=== PATIENT | female | born 1960 | race Caucasian/White ===

== ENCOUNTER 2017-05-18 13:33 | Day surgery (SDC) | payer OTHER ==
[~2017-05-18] VITALS: Ht 177.8 cm; Wt 124.7 kg
[~2017-05-18 13:33] MED LIST: ALBU90OI6 INH; ALLERGY10 MG PO; ASPI325 PO; ATOR40TA PO; CARV6.25 PO; CLOP75 PO; CYCL10 PO; Coreg12.5 MG PO; ERGO50000; ESCI10 PO; ESCI20 PO; FARXIGA5 MG PO; GABA300 PO; INSUASPI SC; INSULANPEN SC; LATA.005SO BOTHEYES; LISI5 PO; LORA.5 PO; LORA1 PO; Lisinopril2.5 MG PO; Lopressor 50 mg50 MG GT; Norco 10-325 T1 EACH PO; Omeprazole20 M1; Pravachol80 MG PO; Pravastatin Sod80 MG PO; ROSU10TA PO; RXLORA1 PO; SITA100T2 PO; VITAMIN D22000 UNIT PO
[2017-05-18] MEDS ORDERED: METO50ER PO (13:54)
== END 2017-05-18 14:46 | disposition home or self-care (01) ==
LOC: ORSCSDS 13:33
PROVIDERS: Ophthalmology
PROC: 08RK3JZ Replacement of Left Lens with Synthetic Substitute, Percutaneous Approach (ICD-10-PCS; principal; 2017-05-18 15:00)
DX: H25.12 Age-related nuclear cataract, left eye (principal); E11.9 Type 2 diabetes mellitus without complications; I10 Essential (primary) hypertension; I25.2 Old myocardial infarction; Z79.82 Long term (current) use of aspirin; Z79.4 Long term (current) use of insulin; Z79.899 Other long term (current) drug therapy; Z87.891 Personal history of nicotine dependence
CPT/HCPCS: 82947; J2250; J3010; J7040; V2632

== ENCOUNTER 2017-06-22 11:10 | Day surgery (SDC) | payer OTHER ==
[~2017-06-22] VITALS: Ht 177.8 cm; Wt 125.3 kg
[~2017-06-22 11:10] MED LIST changes: +METO50ER PO
== END 2017-06-22 13:11 | disposition home or self-care (01) ==
LOC: ORSCSDS 11:10
PROVIDERS: Ophthalmology
PROC: 08RJ3JZ Replacement of Right Lens with Synthetic Substitute, Percutaneous Approach (ICD-10-PCS; principal; 2017-06-22 12:30)
DX: H25.11 Age-related nuclear cataract, right eye (principal); E11.9 Type 2 diabetes mellitus without complications; I10 Essential (primary) hypertension; I25.10 Atherosclerotic heart disease of native coronary artery without angina pectoris; I25.2 Old myocardial infarction; E66.9 Obesity, unspecified; Z68.39 Body mass index [BMI] 39.0-39.9, adult; Z87.891 Personal history of nicotine dependence; Z79.82 Long term (current) use of aspirin; Z79.4 Long term (current) use of insulin; Z79.899 Other long term (current) drug therapy
CPT/HCPCS: 82947; J2250; J3010; J7040; V2632

== ENCOUNTER → 2017-07-10 | Outpatient (CLI) | payer OTHER ==
[2017-07-10 19:55] LABS: Creatinine, Urine Random 83.4 mg/dL (27.00-270.00)
[2017-07-10 19:57] LABS: Microalb/Creat Ratio UR, Rand 9.484 mg/g (0.000-30.000); Microalbumin, Random Urine 7.91 mg/L (0.000-20.000)
== END ==
LOC: LAB EV 16:29 → EDSTATUS 06-01 11:05 → LAB FUT 06-01 11:05
PROVIDERS: Nurse Practitioner Family
DX: E11.65 Type 2 diabetes mellitus with hyperglycemia (principal)
CPT/HCPCS: 82043; 82570

== ENCOUNTER → 2018-03-29 | Outpatient (CLI) | payer OTHER ==
[2018-03-29 16:32] LABS: BASOPHILS ABSOLUTE AUTO 0.04 K/mm3 (0.00-0.23); BASOPHILS PERCENT AUTO 0 % (0-2); EOSINOPHILS ABSOLUTE AUTO 0.27 K/mm3 (0.00-0.68); EOSINOPHILS PERCENT AUTO 3 % (0-6); Hematocrit 44.3 % (33.0-51.0); Hemoglobin 14.4 g/dL (11.5-16.0); IMMATURE GRAN ABSOLUTE AUTO 0.05 K/mm3 (0.00-0.10); IMMATURE GRAN PERCENT AUTO 1 % (0-1); LYMPHOCYTES ABSOLUTE AUTO 2.32 K/mm3 (0.84-5.20); LYMPHOCYTES PERCENT AUTO 21 % (21-46); MONOCYTES ABSOLUTE AUTO 0.66 K/mm3 (0.16-1.47); MONOCYTES PERCENT AUTO 6 % (4-13); Mean Corpuscular HGB 30.1 pg (26.0-34.0); Mean Corpuscular HGB Conc 32.5 g/dL (31.5-36.5); Mean Corpuscular Volume 93 fL (80-100); Mean Platelet Volume 10.5 fL (9.1-12.4); NEUTROPHILS ABSOLUTE AUTO 7.61 K/mm3 (1.96-9.15); NEUTROPHILS PERCENT AUTO 69 % (41-73); Platelet Count 228 K/mm3 (150-400); RDW Coefficient Variation 13.9 % (11.7-14.2); RDW Standard Deviation 47.3 fL (35.1-46.3); Red Blood Cell Count 4.79 M/mm3 (3.80-5.20); White Blood Cell Count 10.95 K/mm3 (4.00-11.30)
[2018-03-29 16:51] LABS: Anion Gap 10 mmol/L (6-16); Blood Urea Nitrogen 10 mg/dL (8-24); Bun/Creatinine Ratio 14.7 (12.0-20.0); CO2, Blood 27 mmol/L (21-32); Calcium, Blood 8.7 mg/dL (8.5-10.1); Chloride, Blood 103 mmol/L (98-108); Creatinine, Blood 0.68 mg/dL (0.40-1.00); Glomerular Filtration Rate >60 (60-); Glucose, Blood 137 mg/dL (70-99); Potassium, Blood 3.8 mmol/L (3.5-5.5); Sodium, Blood 140 mmol/L (136-145)
[2018-03-29 17:01] LABS: Troponin I <0.015 ng/mL (0.000-0.040)
== END | disposition home or self-care (01) ==
LOC: LAB SHORT 16:27 → LAB EV 16:27
PROVIDERS: Physician Assistant Surgical
DX: R06.02 Shortness of breath (principal)
CPT/HCPCS: 80048; 84484; 85025

== ENCOUNTER → 2018-05-04 | Outpatient (CLI) | payer OTHER | END | disposition home or self-care (01) | LOC: LAB 11:07 → LAB SHORT 11:07 | DX: N89.8 Other specified noninflammatory disorders of vagina (principal) | CPT/HCPCS: 87070; 87147; 87205 ==

== ENCOUNTER → 2018-07-20 | Outpatient (CLI) | payer OTHER | END | disposition home or self-care (01) | LOC: LAB SHORT 12:47 → LAB 12:47 | DX: L22 Diaper dermatitis (principal); B35.6 Tinea cruris; B37.3 Candidiasis of vulva and vagina; N95.2 Postmenopausal atrophic vaginitis | CPT/HCPCS: 87070; 87147; 87205 ==

== ENCOUNTER → 2018-09-14 | Outpatient (CLI) | payer OTHER ==
[~2018-09-14] MED LIST changes: +ESTRADIOL42.5 GM VG; +JARDIANCE10 MG PO; +LOSARTAN POTASS25 M2 PO; +METFORMIN HCL500 MG PO; +MONTELUKAST SOD10 MG PO; +OMEP20ER PO; +Oxybutynin Chlo10 MG PO; +TIMO10T
== END ==
LOC: LAB SHORT 11:28 → LAB EV 11:28
DX: N30.00 Acute cystitis without hematuria (principal)
CPT/HCPCS: 87077; 87086; 87186

== ENCOUNTER → 2018-09-27 | Outpatient (CLI) | payer OTHER | END | disposition home or self-care (01) | LOC: LAB EV 13:23 → LAB SHORT 13:23 | DX: R30.0 Dysuria (principal) | CPT/HCPCS: 87086 ==

== ENCOUNTER → 2018-10-12 | Outpatient (CLI) | payer OTHER ==
[2018-10-12 13:18] LABS: BASOPHILS ABSOLUTE AUTO 0.04 K/mm3 (0.00-0.23); BASOPHILS PERCENT AUTO 1 % (0-2); EOSINOPHILS ABSOLUTE AUTO 0.18 K/mm3 (0.00-0.68); EOSINOPHILS PERCENT AUTO 2 % (0-6); Hematocrit 46.4 % (33.0-51.0); Hemoglobin 15.3 g/dL (11.5-16.0); IMMATURE GRAN ABSOLUTE AUTO 0.04 K/mm3 (0.00-0.10); IMMATURE GRAN PERCENT AUTO 1 % (0-1); LYMPHOCYTES ABSOLUTE AUTO 2.02 K/mm3 (0.84-5.20); LYMPHOCYTES PERCENT AUTO 23 % (21-46); MONOCYTES ABSOLUTE AUTO 0.45 K/mm3 (0.16-1.47); MONOCYTES PERCENT AUTO 5 % (4-13); Mean Corpuscular HGB 30.2 pg (26.0-34.0); Mean Corpuscular Volume 92 fL (80-100); Mean Platelet Volume 10.3 fL (9.1-12.4); NEUTROPHILS ABSOLUTE AUTO 5.99 K/mm3 (1.96-9.15); NEUTROPHILS PERCENT AUTO 69 % (41-73); Platelet Count 201 K/mm3 (150-400); RDW Coefficient Variation 14.5 % (11.7-14.2); RDW Standard Deviation 48.4 fL (35.1-46.3); Red Blood Cell Count 5.06 M/mm3 (3.80-5.20); White Blood Cell Count 8.72 K/mm3 (4.00-11.30)
[2018-10-12 13:30] LABS: Alanine Aminotransfer (ALT/SGP 17 U/L (12-78); Albumin, Blood 3.5 g/dL (3.4-5.0); Albumin/Globulin Ratio 0.9 (0.8-1.8); Alk Phos 138 U/L (40-126); Anion Gap 11 mmol/L (6-16); Aspartate Aminotrans (AST/SGOT 22 U/L (12-37); Bilirubin, Total 0.5 mg/dL (0.1-1.0); Blood Urea Nitrogen 10 mg/dL (8-24); Bun/Creatinine Ratio 13.2 (12.0-20.0); CO2, Blood 24 mmol/L (21-32); Calcium, Blood 9.3 mg/dL (8.5-10.1); Chloride, Blood 104 mmol/L (98-108); Creatinine, Blood 0.76 mg/dL (0.40-1.00); Globulin, Blood 3.7 g/dL (2.2-4.0); Glomerular Filtration Rate >60 (60-); Glucose, Blood 148 mg/dL (70-99); Potassium, Blood 4.2 mmol/L (3.5-5.5); Sodium, Blood 139 mmol/L (136-145); Total Protein, Blood 7.2 g/dL (6.4-8.2)
[2018-10-12 13:45] LABS: Troponin I <0.017 ng/mL (0.000-0.040)
== END | disposition home or self-care (01) ==
LOC: LAB SHORT 13:13 → LAB EV 13:13
PROVIDERS: Physician Assistant
DX: R07.9 Chest pain, unspecified (principal)
CPT/HCPCS: 80053; 84484; 85025

== ENCOUNTER 2018-12-28 20:47 | Emergency (ER) | payer OTHER ==
[~2018-12-28] VITALS: Ht 177.8 cm; Wt 122.2 kg
[~2018-12-28 20:47] MED LIST changes: -ESTRADIOL42.5 GM VG; -JARDIANCE10 MG PO; -LOSARTAN POTASS25 M2 PO; -METFORMIN HCL500 MG PO; -MONTELUKAST SOD10 MG PO; -OMEP20ER PO; -Oxybutynin Chlo10 MG PO; -TIMO10T
[2018-12-28 21:32] LABS: BASOPHILS ABSOLUTE AUTO 0.06 K/mm3 (0.00-0.23); BASOPHILS PERCENT AUTO 1 % (0-2); EOSINOPHILS PERCENT AUTO 4 % (0-6); Hematocrit 46.8 % (33.0-51.0); Hemoglobin 15.2 g/dL (11.5-16.0); IMMATURE GRAN ABSOLUTE AUTO 0.08 K/mm3 (0.00-0.10); IMMATURE GRAN PERCENT AUTO 1 % (0-1); LYMPHOCYTES ABSOLUTE AUTO 3.58 K/mm3 (0.84-5.20); LYMPHOCYTES PERCENT AUTO 32 % (21-46); MONOCYTES ABSOLUTE AUTO 0.78 K/mm3 (0.16-1.47); MONOCYTES PERCENT AUTO 7 % (4-13); Mean Corpuscular HGB Conc 32.5 g/dL (31.5-36.5); Mean Corpuscular Volume 96 fL (80-100); Mean Platelet Volume 10.2 fL (9.1-12.4); NEUTROPHILS ABSOLUTE AUTO 6.32 K/mm3 (1.96-9.15); NEUTROPHILS PERCENT AUTO 56 % (41-73); Platelet Count 261 K/mm3 (150-400); RDW Standard Deviation 48.8 fL (35.1-46.3); White Blood Cell Count 11.22 K/mm3 (4.00-11.30)
[2018-12-28 21:52] LABS: Alanine Aminotransfer (ALT/SGP 19 U/L (12-78); Albumin, Blood 3.5 g/dL (3.4-5.0); Alk Phos 128 U/L (50-136); Anion Gap 9 mmol/L (6-16); Aspartate Aminotrans (AST/SGOT 24 U/L (12-37); Bilirubin, Total 0.3 mg/dL (0.1-1.0); Blood Urea Nitrogen 11 mg/dL (8-24); Bun/Creatinine Ratio 15.5 (12.0-20.0); CO2, Blood 25 mmol/L (21-32); Chloride, Blood 108 mmol/L (98-108); Creatinine, Blood 0.71 mg/dL (0.40-1.00); Globulin, Blood 3.6 g/dL (2.2-4.0); Glomerular Filtration Rate >60 (60-); Glucose, Blood 125 mg/dL (70-99); Potassium, Blood 3.5 mmol/L (3.5-5.5); Sodium, Blood 142 mmol/L (136-145); Total Protein, Blood 7.1 g/dL (6.4-8.2); Troponin I <0.015 ng/mL (0.000-0.040)
[2018-12-29] MEDS ORDERED: METFORMIN HCL500 MG PO (00:16)
[2018-12-29] MEDS ORDERED: LOSARTAN POTASS25 M2 PO (00:17)
[2018-12-29] MEDS ORDERED: MONTELUKAST SOD10 MG PO (00:18)
[2018-12-29] MEDS ORDERED: JARDIANCE10 MG PO (00:18)
[2018-12-29] MEDS ORDERED: OMEP20ER PO (00:19)
[2018-12-29] MEDS ORDERED: ESCI20 PO (00:19)
[2018-12-29] MEDS ORDERED: Oxybutynin Chlo10 MG PO (00:20)
[2018-12-29] MEDS ORDERED: ESTRADIOL42.5 GM VG (00:21)
[2018-12-29] MEDS ORDERED: TIMO10T (00:21)
== END 2018-12-29 02:30 | disposition home or self-care (01) ==
LOC: ER 20:47
PROVIDERS: Physician Assistant
DX: R00.2 Palpitations (principal); E11.9 Type 2 diabetes mellitus without complications; J44.9 Chronic obstructive pulmonary disease, unspecified; I25.2 Old myocardial infarction; Z85.828 Personal history of other malignant neoplasm of skin; Z87.891 Personal history of nicotine dependence; Z91.048 Other nonmedicinal substance allergy status; Z88.8 Allergy status to other drugs, medicaments and biological substances; Z88.5 Allergy status to narcotic agent; Z79.899 Other long term (current) drug therapy; Z79.82 Long term (current) use of aspirin; Z79.4 Long term (current) use of insulin
CPT/HCPCS: 36415; 71046; 80053; 84484; 85025; 93005; 93010; 99285-25

== ENCOUNTER → 2019-01-16 | Outpatient (CLI) | payer OTHER ==
[~2019-01-16] MED LIST changes: +ESTRADIOL42.5 GM VG; +JARDIANCE10 MG PO; +LOSARTAN POTASS25 M2 PO; +METFORMIN HCL500 MG PO; +MONTELUKAST SOD10 MG PO; +OMEP20ER PO; +Oxybutynin Chlo10 MG PO; +TIMO10T
[2019-01-21 14:07] LABS: HPV 16 Negative (Negative); HPV 18 Negative (Negative); HPV OTHER HR TYPES Negative (Negative)
== END | disposition home or self-care (01) ==
LOC: LAB SHORT 16:22 → OLS 16:22
PROVIDERS: Obstetrics & Gynecology Gynecology
DX: Z12.72 Encounter for screening for malignant neoplasm of vagina (principal)
CPT/HCPCS: 87624; G0123

== ENCOUNTER → 2020-03-11 | Outpatient (CLI) | payer OTHER ==
[2020-03-13 11:10] LABS: ADENOVIRUS F 40/41 Not Detected (Not Detected); ASTROVIRUS Not Detected (Not Detected); C DIFFICILE TOXIN A/B Not Detected (Not Detected); CRYPTOSPORIDIUM Not Detected (Not Detected); CYCLOSPORA CAYETANENSIS Not Detected (Not Detected); ENTAMOEBA HISTOLYTICA Not Detected (Not Detected); ENTEROAGGREGATIVE E COLI Not Detected (Not Detected); ENTEROPATHOGENIC E COLI Detected (Not Detected); ENTEROTOXIGENIC E COLI Not Detected (Not Detected); GIARDIA LAMBLIA Not Detected (Not Detected); NOROVIRUS GI/GII Not Detected (Not Detected); PLESIOMONAS SHIGELLOIDES Not Detected (Not Detected); ROTAVIRUS A Not Detected (Not Detected); SALMONELLA Not Detected (Not Detected); SAPOVIRUS Not Detected (Not Detected); SHIGA-TOXIN-PRODUCING E COLI Not Detected (Not Detected); SHIGELLA/ENTEROINVASIVE E COLI Not Detected (Not Detected); VIBRIO Not Detected (Not Detected); VIBRIO CHOLERAE Not Detected (Not Detected); YERSINIA ENTEROCOLITICA Not Detected (Not Detected)
== END ==
LOC: LAB SHORT 18:03
PROVIDERS: Physician Assistant
DX: R19.7 Diarrhea, unspecified (principal)
CPT/HCPCS: 0097U

== ENCOUNTER → 2020-12-21 | Outpatient (CLI) | payer OTHER ==
[2020-12-22 12:01] LABS: Candida species (DNA Probe) Positive (NEGATIVE); G. vaginalis (DNA Probe) Positive (NEGATIVE); T. vaginalis (DNA Probe) Negative (NEGATIVE)
== END ==
LOC: LAB SHORT 12:38
PROVIDERS: Physician Assistant
DX: N89.8 Other specified noninflammatory disorders of vagina (principal)
CPT/HCPCS: 87480; 87510; 87660

== ENCOUNTER → 2021-01-08 | Outpatient (CLI) | payer OTHER ==
[2021-01-08 16:03] LABS: Source, Urine Clean Catch
[2021-01-08 16:35] LABS: Appearance, Urine Hazy (Clear); Bilirubin, Urine Neg (Neg); Blood, Urine Neg (Neg); Color, Urine Yellow (P-Yellow); Glucose Qualitative, Urine 3+ (Normal); Ketones, Urine Neg (Neg); Leukocyte Esterase, Urine 1+ (Neg); Nitrite, Urine Neg (Neg); Protein, Urine Neg (Neg); Specific Gravity, Urine 1.005 (1.003-1.022); Urobilinogen, Urine NORM (Normal)
[2021-01-08 16:38] LABS: Bacteria Not Seen /hpf; Red Blood Cells, Urine 0-2 /hpf (0-2); Squamous Epithelial Cells Few /hpf (Few)
== END ==
LOC: LAB 15:58 → LAB SHORT 15:58
PROVIDERS: Physician Assistant
DX: R35.0 Frequency of micturition (principal)
CPT/HCPCS: 81001; 87077; 87086; 87186

== ENCOUNTER → 2021-05-05 | Outpatient (CLI) | payer OTHER ==
[2021-05-05 11:59] LABS: Source, Urine Voided
[2021-05-05 12:56] LABS: Appearance, Urine Clear (Clear); Bilirubin, Urine Neg (Neg); Blood, Urine Neg (Neg); Color, Urine Yellow (P-Yellow); Glucose Qualitative, Urine 4+ (Neg); Ketones, Urine Neg (Neg); Leukocyte Esterase, Urine Neg (Neg); Nitrite, Urine Neg (Neg); Protein, Urine Neg (Neg); Specific Gravity, Urine 1.015 (1.003-1.022); Urobilinogen, Urine NORM (Normal)
== END ==
LOC: LAB SHORT 11:33
PROVIDERS: Internal Medicine Endocrinology, Diabetes & Metabolism
DX: R30.9 Painful micturition, unspecified (principal)
CPT/HCPCS: 81003

== ENCOUNTER → 2021-12-02 | Outpatient (CLI) | payer OTHER | END | disposition home or self-care (01) | LOC: LAB 13:42 → LAB SHORT 13:42 | DX: N39.0 Urinary tract infection, site not specified (principal) | CPT/HCPCS: 87077; 87086; 87186 ==

== ENCOUNTER → 2022-02-25 | Outpatient (CLI) | payer OTHER ==
[2022-02-25 16:03] LABS: Albumin, Blood 3.5 g/dL (3.4-5.0); Bilirubin, Total 0.4 mg/dL (0.1-1.0); Bun/Creatinine Ratio 14.6 (12.0-20.0); Calcium, Blood 9.2 mg/dL (8.5-10.1); Creatinine, Blood 0.68 mg/dL (0.40-1.00); Globulin, Blood 3.4 g/dL (2.2-4.0); Total Protein, Blood 6.9 g/dL (6.4-8.2)
== END | disposition home or self-care (01) ==
LOC: LAB FUT 12-15 17:00 → LAB SHORT 14:20 → LAB 14:20 → LAB FUT 07-16 12:35
PROVIDERS: Internal Medicine Endocrinology, Diabetes & Metabolism
DX: E11.65 Type 2 diabetes mellitus with hyperglycemia (principal)
CPT/HCPCS: 36415; 80053; 83036

== ENCOUNTER → 2022-03-29 | Outpatient (CLI) | payer OTHER | LOC: LAB SHORT 14:20 → LAB 14:20 | DX: R30.0 Dysuria (principal) | CPT/HCPCS: 87077; 87086; 87186 ==

== ENCOUNTER 2022-04-08 06:23 | Day surgery (SDC) | payer OTHER ==
[~2022-04-08] VITALS: Ht 177.8 cm; Wt 120.9 kg
[~2022-04-08 06:23] MED LIST changes: -INSUASPI SC; +NOVOLOG100 UNIT/3 SC
[2022-04-08] MEDS ORDERED: SPIR25 PO (07:24)
--- NOTE | 2022-04-08 07:47 | NUR ---
04/08/22 0747 CYNTHIA CORBIN PT HAD TO GO TO [facility] PRIOR TO OR
--- NOTE | 2022-04-08 08:34 | NUR ---
04/08/22 0834 AURELIO RICARDO 0.15MLS OF EPI MIXED WITH 30MLS OF ROPIVACAINE 0.5% TO CREATE A LOCAL SOLUTION OF ROPIVACAINE 0.5% WITH EPI 1:200,000. 10MLS OF LOCAL INJECTED BY DR WHEATLEY AT START OF CASE BEFORE STERILE PREP.
--- NOTE | 2022-04-08 10:35 | NUR ---
04/08/22 1035 Steven Gamble PT REPORTED 4/10 PAIN PRIOR TO DISCHARGE, BUT STATED PAIN WAS TOLERABLE. SHE REFUSED PO PAIN MEDICATION AND EXPRESSED READINESS TO RETURN HOME AND CONTROL PAIN WITH NORCO.
== END 2022-04-08 10:35 | disposition home or self-care (01) ==
LOC: ORSCSDS 06:23
PROVIDERS: Orthopaedic Surgery
PROC: 0PSJ04Z Reposition Left Radius with Internal Fixation Device, Open Approach (ICD-10-PCS; principal; 2022-04-08 07:30)
DX: S52.562A Barton's fracture of left radius, initial encounter for closed fracture (principal); E78.00 Pure hypercholesterolemia, unspecified; I25.2 Old myocardial infarction; Z87.891 Personal history of nicotine dependence; Z79.4 Long term (current) use of insulin; Z79.899 Other long term (current) drug therapy; Z79.84 Long term (current) use of oral hypoglycemic drugs; E66.9 Obesity, unspecified; Z68.38 Body mass index [BMI] 38.0-38.9, adult
CPT/HCPCS: 82947; A9270; C1713; J0171; J0690; J1100; J1885; J2250; J2405; J2704; J2765; J2795; J3010

== ENCOUNTER → 2022-07-28 | Outpatient (CLI) | payer OTHER ==
[~2022-07-28] MED LIST changes: +SPIR25 PO
[2022-07-29 09:26] LABS: Candida species (DNA Probe) Negative (NEGATIVE); G. vaginalis (DNA Probe) Negative (NEGATIVE); T. vaginalis (DNA Probe) Negative (NEGATIVE)
== END ==
LOC: LAB 14:39 → LAB SHORT 14:39
PROVIDERS: Physician Assistant
DX: N89.8 Other specified noninflammatory disorders of vagina (principal)
CPT/HCPCS: 87480; 87510; 87660

== ENCOUNTER → 2022-10-07 | Outpatient (CLI) | payer OTHER ==
[2022-10-11 18:19] LABS: Adenovirus F 40/41 Not Detected (NOT DETECT); Astrovirus Not Detected (NOT DETECT); Cryptosporidium Not Detected (NOT DETECT); Cyclospora Cayetanensis Not Detected (NOT DETECT); E. Coli O157 Not Detected (NOT DETECT); Entamoeba Histolytica Not Detected (NOT DETECT); Enteroaggregative E. coli-EAEC Not Detected (NOT DETECT); Enteropathogenic E. coli-EPEC Detected (NOT DETECT); Enterotoxigenic E. coli-ETEC Not Detected (NOT DETECT); Giardia Lamblia Not Detected (NOT DETECT); Norovirus GI/GII Not Detected (NOT DETECT); Plesiomonas Shigelloides Not Detected (NOT DETECT); Rotavirus A Not Detected (NOT DETECT); Salmonella Sp Not Detected (NOT DETECT); Sapovirus Not Detected (NOT DETECT); Shiga Toxin-prod E. coli-STEC Not Detected (NOT DETECT); Shigella/Enteroin E. coli-EIEC Not Detected (NOT DETECT); Vibrio Cholerae Not Detected (NOT DETECT); Vibrio Sp Not Detected (NOT DETECT); Yersinia Enterocolitica Not Detected (NOT DETECT)
[2022-10-13 14:05] LABS: Campylobacter Sp Not Detected (NOT DETECT)
== END ==
LOC: LAB SHORT 20:27 → LAB 20:27
PROVIDERS: Physician Assistant
DX: R19.7 Diarrhea, unspecified (principal)
CPT/HCPCS: 87507

== ENCOUNTER → 2023-07-07 | Outpatient (CLI) | payer OTHER ==
[2023-07-07 18:49] LABS: U Amphetamine Screen Not Detected; U Barbituate Screen Not Detected; U Benzodiazapine Screen Not Detected; U Buprenorphine Screen Not Detected; U Cannabinoids Screen Not Detected; U Cocaine Screen Not Detected; U Methadone Screen Not Detected; U Methamphetamine Screen Not Detected; U Opiates Screen DETECTED; U Oxycodone Screen Not Detected; U Phencyclidine Screen Not Detected
[2023-07-12 14:20] LABS: 6-ACETYLMORPHINE, URN, QUANT <10 ng/mL; CODEINE, URN, QUANT <20 ng/mL; HYDROCODONE, URN, QUANT 280 ng/mL; HYDROMORPHONE, URN, QUANT <20 ng/mL; MORPHINE, URN, QUANT <20 ng/mL; NORHYDROCODONE, URN, QUANT 277 ng/mL; NOROXYCODONE, URN, QUANT <20 ng/mL; NOROXYMORPHONE, URN, QUANT <20 ng/mL; OXYCODONE, URN, QUANT <20 ng/mL; OXYMORPHONE, URN, QUANT <20 ng/mL
== END | disposition home or self-care (01) ==
LOC: LAB SHORT 17:44 → LAB 17:44
PROVIDERS: Physician Assistant
DX: G89.4 Chronic pain syndrome (principal)
CPT/HCPCS: G0480

== ENCOUNTER → 2023-09-14 | Outpatient (CLI) | payer OTHER | LOC: LAB SHORT 12:48 → LAB 12:48 | DX: R30.0 Dysuria (principal) | CPT/HCPCS: 87086 ==

== ENCOUNTER → 2023-11-28 | Outpatient (CLI) | payer OTHER ==
[2023-11-28 19:09] LABS: Bacterial Vaginosis PCR Negative (NEGATIVE)
[2023-11-29 00:03] LABS: Candida Group, PCR DETECTED (NOT DETECT); Candida glabrata-krusei, PCR DETECTED (NOT DETECT)
== END ==
LOC: LAB 15:03 → LAB SHORT 15:03
PROVIDERS: Advanced Practice Midwife
DX: R30.0 Dysuria (principal); N76.0 Acute vaginitis
CPT/HCPCS: 87077; 87086; 87186; 87481; 87661; 87801

== ENCOUNTER → 2024-01-04 | Outpatient (CLI) | payer OTHER | END | disposition home or self-care (01) | LOC: LAB SHORT 14:33 → LAB 14:33 | DX: R30.0 Dysuria (principal) | CPT/HCPCS: 87077; 87086; 87186 ==

== ENCOUNTER → 2024-02-12 | Outpatient (CLI) | payer OTHER ==
[2024-02-12 20:35] LABS: Bacterial Vaginosis PCR Negative (NEGATIVE)
[2024-02-12 21:25] LABS: Candida Group, PCR DETECTED (NOT DETECT); Candida glabrata-krusei, PCR DETECTED (NOT DETECT)
== END | disposition home or self-care (01) ==
LOC: LAB SHORT 16:10 → LAB 16:10
PROVIDERS: Advanced Practice Midwife
DX: N76.0 Acute vaginitis (principal); R30.0 Dysuria
CPT/HCPCS: 87086; 87481; 87661; 87801

== ENCOUNTER → 2024-03-11 | Outpatient (CLI) | payer OTHER ==
[2024-03-11 16:38] LABS: Source, Urine Clean Catch
[2024-03-11 19:07] LABS: Appearance, Urine Hazy (Clear); Bilirubin, Urine Neg (Neg); Blood, Urine 1+ (Neg); Glucose Qualitative, Urine 4+ (Neg); Ketones, Urine Neg (Neg); Leukocyte Esterase, Urine 1+ (Neg); Nitrite, Urine Neg (Neg); Protein, Urine Neg (Neg); Urobilinogen, Urine NORM (Normal)
[2024-03-11 19:27] LABS: Color, Urine Pale Yellow (P-Yellow)
[2024-03-11 19:28] LABS: Bacteria Many /hpf; Squamous Epithelial Cells Few /hpf (Few); Yeast/Fungi Urine Few /hpf
[2024-03-11 21:01] LABS: Bacterial Vaginosis PCR Negative (NEGATIVE); Candida Group, PCR NOT DETECTED (NOT DETECT)
[2024-03-11 21:19] LABS: Candida glabrata-krusei, PCR DETECTED (NOT DETECT)
== END | disposition home or self-care (01) ==
LOC: LAB 16:33 → LAB SHORT 16:33
PROVIDERS: Advanced Practice Midwife
DX: T28.3XXA Burn of internal genitourinary organs, initial encounter (principal)
CPT/HCPCS: 81001; 87077; 87086; 87186; 87481; 87661; 87801

== ENCOUNTER 2024-04-02 06:17 | Inpatient (IN) | payer OTHER ==
[~2024-04-02] VITALS: Ht 177.8 cm; Wt 116.6 kg
[2024-04-02] MEDS ORDERED: Ipratropium/Albuterol SulF 2.5-0.5MG/3 ML Amp INH ONE (06:50)
[2024-04-02 06:54] LABS: BASOPHILS ABSOLUTE AUTO 0.07 K/mm3 (0.00-0.23); BASOPHILS PERCENT AUTO 1 % (0-2); EOSINOPHILS ABSOLUTE AUTO 0.35 K/mm3 (0.00-0.68); EOSINOPHILS PERCENT AUTO 2 % (0-6); Hematocrit 45.6 % (33.0-51.0); IMMATURE GRAN ABSOLUTE AUTO 0.08 K/mm3 (0.00-0.10); IMMATURE GRAN PERCENT AUTO 1 % (0-1); LYMPHOCYTES ABSOLUTE AUTO 2.61 K/mm3 (0.84-5.20); LYMPHOCYTES PERCENT AUTO 17 % (21-46); MONOCYTES ABSOLUTE AUTO 0.71 K/mm3 (0.16-1.47); MONOCYTES PERCENT AUTO 5 % (4-13); Mean Corpuscular HGB 32.1 pg (26.0-34.0); Mean Corpuscular HGB Conc 32.9 g/dL (31.5-36.5); Mean Corpuscular Volume 97 fL (80-100); Mean Platelet Volume 10.7 fL (9.1-12.4); NEUTROPHILS ABSOLUTE AUTO 11.15 K/mm3 (1.96-9.15); NEUTROPHILS PERCENT AUTO 75 % (41-73); Platelet Count 208 K/mm3 (150-400); RDW Coefficient Variation 14.2 % (11.7-14.2); RDW Standard Deviation 50.6 fL (35.1-46.3); Red Blood Cell Count 4.68 M/mm3 (3.80-5.20); White Blood Cell Count 14.97 K/mm3 (4.00-11.30)
[2024-04-02 06:59] LABS: Base Excess Venous -3.8 mmol/L; Bicarbonate Venous 21.2 mmol/L (24.0-30.0); PCO2 Venous 43.3 mmHg (38-42); pH Blood Venous 7.32 (7.34-7.37)
[2024-04-02] MEDS ORDERED: Albuterol 2.5 MG/3 ML VIAL INH SCH (07:10)
[2024-04-02 07:12] LABS: Albumin, Blood 3.3 g/dL (3.4-5.0); Albumin/Globulin Ratio 0.9 (0.8-1.8); Bilirubin, Total 0.5 mg/dL (0.1-1.0); Bun/Creatinine Ratio 19.5 (12.0-20.0); Calcium, Blood 8.4 mg/dL (8.5-10.1); Creatinine, Blood 0.62 mg/dL (0.40-1.00); Globulin, Blood 3.5 g/dL (2.2-4.0); Magnesium, Blood 1.9 mg/dL (1.6-2.4); Potassium, Blood 3.8 mmol/L (3.5-5.5); Total Protein, Blood 6.8 g/dL (6.4-8.2)
[2024-04-02] MEDS ORDERED: Aspirin 325 MG Tab PO ONE (07:40)
[2024-04-02] MEDS ORDERED: Azithromycin 500 MG in NS 250 ML IV ONE (07:50)
[2024-04-02] MEDS ORDERED: CefTRIAXone Sodium 2,000 MG in NS 100 ML IV ONE (07:50)
[2024-04-02 07:53] LABS: Influenza A, PCR NEGATIVE (NEGATIVE); Influenza B, PCR NEGATIVE (NEGATIVE); Resp Syncytial Virus, PCR NEGATIVE (NEGATIVE); SARS-Cov-2 (COVID-19) PCR, MMC NEGATIVE (NEGATIVE)
[2024-04-02] MEDS ORDERED: HYDROcodone 10-APAP 325 TAB PO ONE (09:10)
[2024-04-02] MEDS ORDERED: LORazepam 2 MG/ML 1ML Injection IV ONE (09:55)
[2024-04-02] MEDS ORDERED: Furosemide 10 MG/ML 4ML Vial IV ONE ×2 (10:00→15:15)
[2024-04-02] MEDS ORDERED: HYDROcodone 10-APAP 325 TAB PO PRN (12:45)
[2024-04-02] MEDS ORDERED: Proventil HFA 90 mcg INH (12:46)
[2024-04-02] MEDS ORDERED: ESCI5 PO (12:47)
[2024-04-02] MEDS ORDERED: Hydrocodone-Acetamin PO (12:49)
[2024-04-02] MEDS ORDERED: FLU VACC TS2024-25(6MOS UP)/PF 45 MCG/0.5 ML SYRINGE IM SCH (12:50)
[2024-04-02] MEDS ORDERED: PRAVASTATIN SOD10 M1 PO (12:50)
[2024-04-02] MEDS ORDERED: LYRICA150 M1 PO (12:51)
[2024-04-02] MEDS ORDERED: ENTRESTO 49 MG1 EAC2 PO (12:52)
[2024-04-02] MEDS ORDERED: Betimol5 ML BOTHEYES (12:53)
[2024-04-02 14:24] VITALS: BP 123/73
[2024-04-02 14:41] LABS: Anti-Xa UFH, PHA Monitoring <0.10 IU/mL; International Normalized Ratio 0.96; Prothrombin Time Results 10.3 Sec (9.7-11.5)
[2024-04-02] MEDS ORDERED: Heparin Sodium 5000 Units/ML 1ML MDV IV ONE (15:10)
[2024-04-02] MEDS ORDERED: Heparin Sodium,Porcine/0.5 NS 500 ML IV SCH (15:10)
--- NOTE | 2024-04-02 15:13 | NUR ---
assumed care of pt, cpap removed from pt for transfer to my room 10 and placed on 4l to maintain 93% o2. pt viktor well and remained on 02 until transfer to pcu 3, pt had no c/o and no distress, purwik was draining well.
--- NOTE | 2024-04-02 17:55 | NUR ---
ASSUMPTION OF CARE @ APPORX 1416 AND SHIFT SUMMARY REPORT RECEIVED BY THIS RN FROM RN GISELLA @ 1340. PT ARRIVED TO ROOM @ APPROX 1416, PT SELF TRANSFERRED FROM ER BED TO PCU BED. PT SETTLED IN BED AND FAMILY/FRIENDS CAME TO ROOM. A&O X4, OBEYS COMMANDS, ABLE TO MAKE NEEDS KNOWN, PT DOES BECOME VERY ANXIOUS WHEN DISCUSSING HER CONDITION AND HAD BOUTS OF CRYING, AMBULATING 1 PERSON SBA, PT REPORTING RIGHT ROTATOR CUFF INJURY FROM FALL AT HOME. CONTINUOUS SPO2, SPO2 GREATER THAN 90% ON 4L O2 VIA NC/ BASELINE PT IS ON RA, UPPER LOBES ARE CLEAR, LOWER LOBES HAVE CRACKLES. CONTINUOUS TELE MONITORING, SINUS RHYTHM, HR 80-90 S, PT DENEIS CHEST P/P, BP STABLE WITH MAP GREATER THAN 65. PT REPORTING NIGHT TIME INCONTINENCE AND DAY TIME URGENCY, PT REPORTS THAT SHE GETS BOTOX IN HER BLADDER, PUREWICK IN PLACE CONNECTED TO LOW CONTINUOUS SUCTION, URINE YELLOW IN COLOR. PT DENIES FEELINGS OF CONSTIPATION OR NAUSEA, PT REPORTS LAST BM YESTERDAY, PT NPO @ MIDNIGHT FOR POTENTIAL PROCEDURE 04/03. PT HAVING REDNESS TO KERRY AREA, PT HAVING RASH TO UNDER BREAST, NO OPEN WOUNDS AT THIS TIME. DR. NARANJO TO BEDSIDE PT UPDATED ON PLAN OF CARE.
[2024-04-02] MEDS ORDERED: Sacubitril/Valsartan 49 MG/51 MG Tab PO SCH (21:00)
[2024-04-02] MEDS ORDERED: Insulin Glargine-Yfgn 100 Unit/mL 3 ML SYR SC SCH (21:00)
[2024-04-02] MEDS ORDERED: Pregabalin 75 MG Cap PO SCH (21:00)
[2024-04-02] MEDS ORDERED: Latanoprost 0.005% Opth Soln 2.5 ML BOTHEYES SCH (21:00)
[2024-04-02] MEDS ORDERED: Timolol 0.5% Opth Soln 5 ML BOTHEYES SCH (21:00)
[2024-04-02 21:43] VITALS: BP 114/75
--- NOTE | 2024-04-02 22:45 | NUR ---
ASSUMPTION OF CARE: PATIENT IS ALERT AND ORIENTED X 4, MILDLY ANXIOUS. HEPARIN Gtt INFUSING. DENIES CHEST PAIN PRESSURE OR SOB AT REST, IS NOW ON 2L VIA NC. HAS IMPROVED OXYGEN RESERVES THAN PREVIOUS RN. PATIENT HAS BEEN COOPERATIVE DIURESING WELL, ATTMEPTIN BEST I/O DESPITE URGENCY AND INCONTINENCE, CBG OBTAINED LONG ACTING GIVEN. EDCUATED FOR >30MINUTES ON CURRENT CONDITION DISEASE PROCESS AND PLAN OF CARE. NO ACUTE CONCERNS FROM PATIENT OR THIS RN AT THIS TIME. PLAN OF CARE CONTNIUES.
[2024-04-02 23:09] LABS: pH Blood Venous 7.42 (7.34-7.37)
[2024-04-02 23:18] VITALS: BP 107/66
[2024-04-02 23:36] LABS: Bun/Creatinine Ratio 16.8 (12.0-20.0); Calcium, Blood 8.6 mg/dL (8.5-10.1); Creatinine, Blood 0.6 mg/dL (0.40-1.00); Potassium, Blood 3.5 mmol/L (3.5-5.5)
[2024-04-03] VITALS (12 sets, daily range): BP systolic 92–114; BP diastolic 57–72
[2024-04-03] MEDS ORDERED: Dose Adjust by Pharmacy XX STA ×2 (00:02→07:21)
[2024-04-03 04:06] LABS: BASOPHILS ABSOLUTE AUTO 0.04 K/mm3 (0.00-0.23); BASOPHILS PERCENT AUTO 0 % (0-2); EOSINOPHILS PERCENT AUTO 2 % (0-6); Hematocrit 41.5 % (33.0-51.0); Hemoglobin 13.8 g/dL (11.5-16.0); IMMATURE GRAN ABSOLUTE AUTO 0.04 K/mm3 (0.00-0.10); IMMATURE GRAN PERCENT AUTO 0 % (0-1); LYMPHOCYTES ABSOLUTE AUTO 2.88 K/mm3 (0.84-5.20); LYMPHOCYTES PERCENT AUTO 27 % (21-46); MONOCYTES ABSOLUTE AUTO 0.87 K/mm3 (0.16-1.47); MONOCYTES PERCENT AUTO 8 % (4-13); Mean Corpuscular HGB 31.7 pg (26.0-34.0); Mean Corpuscular HGB Conc 33.3 g/dL (31.5-36.5); Mean Corpuscular Volume 95 fL (80-100); NEUTROPHILS ABSOLUTE AUTO 6.78 K/mm3 (1.96-9.15); NEUTROPHILS PERCENT AUTO 63 % (41-73); Platelet Count 162 K/mm3 (150-400); RDW Coefficient Variation 13.9 % (11.7-14.2); Red Blood Cell Count 4.35 M/mm3 (3.80-5.20); White Blood Cell Count 10.81 K/mm3 (4.00-11.30)
[2024-04-03 04:32] LABS: Albumin, Blood 2.9 g/dL (3.4-5.0); Albumin/Globulin Ratio 0.9 (0.8-1.8); Bilirubin, Total 0.7 mg/dL (0.1-1.0); Bun/Creatinine Ratio 21.6 (12.0-20.0); Calcium, Blood 8.9 mg/dL (8.5-10.1); Creatinine, Blood 0.51 mg/dL (0.40-1.00); Globulin, Blood 3.2 g/dL (2.2-4.0); Potassium, Blood 3.3 mmol/L (3.5-5.5); Total Protein, Blood 6.1 g/dL (6.4-8.2)
--- NOTE | 2024-04-03 05:07 | NUR ---
EOS: PATIENT CONTINUES TO IMPROVE THROUGH THE SHIFT, NO CLINICAL SIGNS OF DETERIORATION. DIURESING EXTREMELY WELL. NO ACUTE CONCERNS, STILL LABILE EMOTIONS, DENIES CHEST PAIN PRESSURE OR SOB. HEPARIN Gtt INCREASED BY 2 UNITS. NPO SINCE 0000
[2024-04-03] MEDS ORDERED: Heparin Sodium 1000 Units/ML 10ML MDV ONE (07:22)
[2024-04-03] MEDS ORDERED: NS 250 ML IV ONE (07:22)
[2024-04-03] MEDS ORDERED: Verapamil HCL 2.5 MG/ML 2ML Injection ONE (07:22)
[2024-04-03] MEDS ORDERED: NS 1,000 ML IV ONE ×2 (07:22→07:55)
[2024-04-03] MEDS ORDERED: Nitroglycerin 2 MG/20 ML BTL ONE (07:23)
[2024-04-03] MEDS ORDERED: Potassium Chloride 20 MEQ TabCR PO ONE (08:00)
[2024-04-03] MEDS ORDERED: Midazolam HCl 1MG / ML 2ML Vial ONE (08:26)
[2024-04-03] MEDS ORDERED: FentaNYL Citrate 50 MCG/ML 2 ML Injection ONE (08:26)
[2024-04-03] MEDS ORDERED: Spironolactone 25 MG Tab PO SCH (09:00)
[2024-04-03] MEDS ORDERED: Pregabalin 75 MG Cap PO SCH (09:00)
[2024-04-03] MEDS ORDERED: Aspirin 81 MG Chew PO SCH (09:00)
[2024-04-03] MEDS ORDERED: Citalopram Hydrobromide 20 MG Tab PO SCH (09:00)
[2024-04-03] MEDS ORDERED: Pravastatin Sodium 20 MG Tab PO SCH (09:00)
[2024-04-03] MEDS ORDERED: Azithromycin 250 MG Tab PO SCH (09:00)
[2024-04-03] MEDS ORDERED: LORazepam 0.5 MG Tab PO PRN (09:50)
[2024-04-03] MEDS ORDERED: NS KCl 20mEq 1,000 ML IV ONE (10:00)
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
--- NOTE | 2024-04-03 13:17 | NUR ---
ESTRADARA TRANSFER NOTE A&O X4, OBEYS COMMANDS, ABLE TO MAKE NEEDS KNOWN, PT DOES BECOME VERY ANXIOUS WHEN DISCUSSING HER CONDITION AND HAD BOUTS OF CRYING,[facility] CONTINUOUS SPO2, SPO2 GREATER THAN 90% ON 2L O2 VIA NC/ BASELINE PT IS ON RA, UPPER LOBES ARE CLEAR, LOWER LOBES HAVE CRACKLES. CONTINUOUS TELE MONITORING, SINUS RHYTHM, HR 70-80 S, PT DENEIS CHEST P/P, BP STABLE WITH MAP GREATER THAN 65. PUREWICK IN PLACE CONNECTED TO LOW CONTINUOUS SUCTION, URINE YELLOW IN COLOR. PT DENIES FEELINGS OF CONSTIPATION OR NAUSEA, PT HAVING ONLY SIPS OF WATER. TR BAND COMPLETELY FLAT @ 1158, RIGHT RADIAL SITE SOFT/NONTENDER/NO SIGNS OF HEMATOMA, CAP REFILL ON RIGHT FINGERS WNL AND ARE WARM. KASSANDRA ARRANGED AND PT TO BE SENT TO [facility] AND TRANSPORT ARRANGED DR. DAVIS CAME TO BEDSIDE @ APPROX 1140. PT TAKEN BY [facility] AND HEPARIN RESTARTED AT PREVIOUS RATE 19 U/KG/HR @ RATE OF 33.8MLS @ ARROX 1301, REPORT GIVEN BY THIS RN TO PCU NURSE.
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
[2024-04-04] MEDS ORDERED: Aspirin 81 MG Chew PO SCH (09:00)
== END 2024-04-03 13:06 | disposition short-term general hospital (02) | DRG 280 ==
LOC: ER 06:17 → PCU 13:22
PROVIDERS: Emergency Medicine; ADMIT Student in an Organized Health Care Education/Training Program
PROC: 5A09357 Assistance with Respiratory Ventilation, Less than 24 Consecutive Hours, Continuous Positive Airway Pressure (ICD-10-PCS; principal; 2024-04-02)
PROC: 4A023N7 Measurement of Cardiac Sampling and Pressure, Left Heart, Percutaneous Approach (ICD-10-PCS; 2024-04-03)
PROC: B2111ZZ Fluoroscopy of Multiple Coronary Arteries using Low Osmolar Contrast (ICD-10-PCS; 2024-04-03)
DX: I21.4 Non-ST elevation (NSTEMI) myocardial infarction (principal); J96.01 Acute respiratory failure with hypoxia; E87.20 Acidosis, unspecified; I50.22 Chronic systolic (congestive) heart failure; E11.9 Type 2 diabetes mellitus without complications; M19.90 Unspecified osteoarthritis, unspecified site; I11.0 Hypertensive heart disease with heart failure; E78.5 Hyperlipidemia, unspecified; I25.10 Atherosclerotic heart disease of native coronary artery without angina pectoris; G47.33 Obstructive sleep apnea (adult) (pediatric); E11.39 Type 2 diabetes mellitus with other diabetic ophthalmic complication; H42 Glaucoma in diseases classified elsewhere; G89.4 Chronic pain syndrome; D72.829 Elevated white blood cell count, unspecified; F32.9 Major depressive disorder, single episode, unspecified; E66.9 Obesity, unspecified; E87.6 Hypokalemia; F41.9 Anxiety disorder, unspecified; Z91.09 Other allergy status, other than to drugs and biological substances; Z88.8 Allergy status to other drugs, medicaments and biological substances; Z88.5 Allergy status to narcotic agent; Z91.048 Other nonmedicinal substance allergy status; Z79.82 Long term (current) use of aspirin; Z79.84 Long term (current) use of oral hypoglycemic drugs; Z79.4 Long term (current) use of insulin; Z79.899 Other long term (current) drug therapy; Z90.710 Acquired absence of both cervix and uterus; Z98.42 Cataract extraction status, left eye; Z98.41 Cataract extraction status, right eye; Z98.890 Other specified postprocedural states; Z87.891 Personal history of nicotine dependence; Z95.5 Presence of coronary angioplasty implant and graft; Z68.37 Body mass index [BMI] 37.0-37.9, adult
CPT/HCPCS: 0241U; 36415; 71045; 71275; 76937; 80048; 80053; 82803; 82947; 83605; 83735; 83880; 84484; 85025; 85379; 85520; 85610; 85730; 87040; 93005; 93010; 93458; 94640; 94644; 94660; 94664; 94762; 96365-59; 96366; 96367; 96375; 99152; 99153; 99285-25; A9270; C1769; C1887; C1894; C8929; J0456; J0696; J1644; J1815; J1940; J2060; J2250; J3010; J3480; J7030; J7050; Q9957; Q9967

== ENCOUNTER 2024-04-09 07:43 | Emergency (ER) | payer OTHER ==
[~2024-04-09] VITALS: Ht 177.8 cm; Wt 117.9 kg
[2024-04-09 07:43] VITALS: BP 113/86
[~2024-04-09 07:43] MED LIST changes: +Betimol5 ML BOTHEYES; +ENTRESTO 49 MG1 EAC2 PO; +ESCI5 PO; +Hydrocodone-Acetamin PO; +LYRICA150 M1 PO; +PRAVASTATIN SOD10 M1 PO; +Proventil HFA 90 mcg INH
[2024-04-09 08:18] LABS: BASOPHILS ABSOLUTE AUTO 0.11 K/mm3 (0.00-0.23); BASOPHILS PERCENT AUTO 1 % (0-2); EOSINOPHILS ABSOLUTE AUTO 0.42 K/mm3 (0.00-0.68); EOSINOPHILS PERCENT AUTO 3 % (0-6); Hemoglobin 14.2 g/dL (11.5-16.0); IMMATURE GRAN ABSOLUTE AUTO 0.11 K/mm3 (0.00-0.10); IMMATURE GRAN PERCENT AUTO 1 % (0-1); LYMPHOCYTES ABSOLUTE AUTO 7.17 K/mm3 (0.84-5.20); LYMPHOCYTES PERCENT AUTO 49 % (21-46); MONOCYTES ABSOLUTE AUTO 1.14 K/mm3 (0.16-1.47); MONOCYTES PERCENT AUTO 8 % (4-13); Mean Corpuscular HGB 31.8 pg (26.0-34.0); Mean Corpuscular HGB Conc 31.6 g/dL (31.5-36.5); Mean Corpuscular Volume 101 fL (80-100); NEUTROPHILS ABSOLUTE AUTO 5.63 K/mm3 (1.96-9.15); NEUTROPHILS PERCENT AUTO 39 % (41-73); NRBC ABSOLUTE 0.05 K/mm3 (0.00-0.02); NRBC Auto 0.3 /100 WBC (0.0-0.2); Platelet Count 250 K/mm3 (150-400); RDW Coefficient Variation 14.4 % (11.7-14.2); Red Blood Cell Count 4.46 M/mm3 (3.80-5.20); White Blood Cell Count 14.58 K/mm3 (4.00-11.30)
[2024-04-09 08:40] LABS: Albumin, Blood 3.2 g/dL (3.4-5.0); Albumin/Globulin Ratio 0.9 (0.8-1.8); Bilirubin, Total 0.4 mg/dL (0.1-1.0); Bun/Creatinine Ratio 11.5 (12.0-20.0); Creatinine, Blood 0.69 mg/dL (0.40-1.00); Globulin, Blood 3.7 g/dL (2.2-4.0); Potassium, Blood 3.3 mmol/L (3.5-5.5); Total Protein, Blood 6.9 g/dL (6.4-8.2)
[2024-04-09 09:53] LABS: Calcium, Ionized (POC) 1.15 mmol/L (1.10-1.46); Chloride (POC) 103 mmol/L (98-108); Creatinine (POC) 0.9 mg/dL (0.6-1.0); Glucose (ISTAT POC) 235 mg/dL (70-99); Hemoglobin (POC) 15.3 g/dL (12.0-16.0); Potassium (POC) 3.2 mmol/L (3.5-5.5); Sodium (POC) 140 mmol/L (135-148); Total CO2 (POC) 28 mmol/L (21-32)
--- NOTE | 2024-04-09 10:25 | NUR ---
Patient is undergoing CPR, her dtr, Mandy, arrives with a friend and Mandy has her younger sister Carolee on facetime. I inform DR. Raymundo that family have arrived. He meets with family and compassionately explains about the dier situation that the patient is in. They ask to come to ER26 to witness the final attempts to get a pulse. Family is teaful as DR. Raymundo calls TOD at 0823. I provided prayer and grief support. I then conducted a life review which evetually gets the family laughing and crying together. I assisted in selecting a home ([facility] in [place]). I continued to stay with the family normalizing their experience and providing a calming presence. They showed signs of being comforted. I walked them to the ER doors and supplied the family with resources for grief support.
[2024-04-09] MEDS ORDERED: EPINEPhrine HCl 0.1 MG/ML 10ML SYR IV ONE (15:32)
[2024-04-09] MEDS ORDERED: Calcium Chloride 10% 10 ML SYR IV ONE (15:32)
[2024-04-09] MEDS ORDERED: Amiodarone HCl 50 MG / ML 3 ML Amp IV ONE (15:32)
== END 2024-04-09 16:41 ==
LOC: ER 07:43
PROVIDERS: Emergency Medicine
DX: I46.9 Cardiac arrest, cause unspecified (principal); E11.9 Type 2 diabetes mellitus without complications; Z87.891 Personal history of nicotine dependence; Z79.82 Long term (current) use of aspirin; Z79.4 Long term (current) use of insulin; Z79.899 Other long term (current) drug therapy; Z88.5 Allergy status to narcotic agent; Z91.048 Other nonmedicinal substance allergy status; Z88.8 Allergy status to other drugs, medicaments and biological substances
CPT/HCPCS: 80047; 80053; 83880; 84484; 85014; 85025; 92950; 96374-59; 96375-59; 99285-25; J0282